=== PATIENT | male | born 1995 | race Asian ===

== ENCOUNTER 2024-10-04 22:34 | Emergency (ER) | payer OTHER, SELFPAY ==
[2024-10-04 22:36] VITALS: BP 131/89
[2024-10-04 22:52] LABS: Hematocrit 44.5 % (39.0-52.0); Hemoglobin 16.3 g/dL (13.0-18.0); Mean Corp Hgb Conc. 36.6 g/dL (33.0-37.0); Mean Corpuscular Volume 92.9 fL (80.0-94.0); Nucleated Red Blood Cells % 0 % (-); Platelet Count 109 10^3/uL (130-400); Red Cell Dist. Width 11.9 % (11.5-14.5)
[2024-10-04 23:04] LABS: ALT (SGPT) 58 U/L (0-50); AST (SGOT) 32 U/L (17-59); Albumin 4.3 g/dl (3.5-5.0); Alkaline Phosphatase 47 U/L (38-126); Blood Urea Nitrogen 15 mg/dl (9-20); Calcium 8.8 mg/dl (8.4-10.2); Carbon Dioxide 24 mmol/L (22-30); Chloride 106 mmol/L (98-107); Glucose 108 mg/dl (70-99); Lipase 65 U/L (23-300); Potassium 3.5 mmol/L (3.5-5.1); Sodium 135 mmol/L (135-145); Total Protein 7.2 g/dl (6.3-8.2); eGFR > 60.00
[2024-10-05 03:25] VITALS: BP 136/83
--- NOTE | 2024-10-05 03:49 | ED.GENMED ---
History of Present Illness
General
Chief Complaint: Abdominal Symptoms
Source: patient
Exam Limitations: none
Time Seen by Provider: 10/05/24 03:42
Nursing documentation reviewed up to this point in time: agreed with
History of Present Illness
History of Present Illness:
This is a 29-year-old gentleman with no significant past medical history. 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 Maintained on doxycycline over the past 11 months for malaria prophylaxis. He complains of 2-day
history of nausea, vomiting, diarrhea, symptoms worsened today. He has not had a fever nor chills. Denies hematemesis nor hematochezia. He denies abdominal pain. No close contacts with similar symptoms. No history of similar episodes in the
past.
He has been attempting to limit his diet to just clear liquids today, drinking Gatorade etc.
Since arrival to the ED patient states he has passed 3 loose stools but has had no vomiting.
Other than doxycycline he takes no other medications.
Past History
Past History
ED Past Medical History: None
ED Past Surgical History: Cholecystectomy
Patient has exhibited threatening behavior?: No
Social History
Tobacco: Non-smoker
Personal: Single
Living: with family
Employment: Employed
Family History
Family History: Other (Noncontributory)
Phy Exam
Physical Exam
Physical Exam:
GENERAL: 29-year-old male appears his stated age, awake and alert, pleasant, appears in no acute distress. Vital signs within normal limits.
EYE: anicteric
NECK: Supple, nontender, no meningismus, no significant adenopathy.
ENT: oral mucosa is moist. No rhinorrhea.
CARDIAC: Regular rate and rhythm. no murmur.
LUNGS: Clear breath sounds bilaterally, no acute respiratory distress, no wheezes/rales/rhonchi
ABDOMEN: Soft, nondistended, without focal tenderness, no r/g, no cvat. normoactive BS.
NEUROLOGICAL: Alert and oriented x3, no focal neuro deficits. Gait is jamison and steady.
SKIN: Warm and dry, normal color, skin intact. No rash.
MUSCULOSKELETAL: No C/C/E. peripheral pulses are full and equal b/l. No palpable tenderness.
PSYCH: Normal and appropriate interaction.
Course
Orders/Labs/Results
Orders:
Orders
10/04/24 22:45
Complete Blood Count/With Diff Urgent
Comprehensive Metabolic Panel Urgent
Lipase Urgent
10/05/24 05:04
Stool Culture Urgent
TOR Source: Feces/Stool
Specimen Description:
Date Specimen was Collected: 10/05/24
Time Specimen was Collected: 05:04
10/05/24 05:05
STOOL [C difficile Antigen & Toxins] Urgent
TOR Source: Feces/Stool
Specimen Description:
Date Specimen was Collected: 10/05/24
Time Specimen was Collected: 05:05
Abnormal Lab Results
10/04/24
22:45
MCH 34.0 H pg
(27.0-31.0)
Plt Count 109 L 10^3/uL
(130-400)
MPV 12.5 H fL
(7.4-10.4)
Absolute Lymphs (auto) 0.5 L 10^3/uL
(1.2-3.4)
Immature Gran % 0.6 H %
(0-0.5)
Neutrophils % 84.2 H %
(42.2-75.2)
Lymphocytes % 7.6 L %
(20.5-51.1)
Glucose 108 H mg/dl
(70-99)
Total Bilirubin 2.3 H mg/dl
(0.2-1.3)
ALT 58 H U/L
(0-50)
10/04/24 22:45
10/04/24 22:45
Vital Signs
Initial and Last Documented VS:
Initial Vital Signs
Temp Pulse Resp BP Pulse Ox
98.1 F 110 18 131/89 97
10/04/24 22:36 10/04/24 22:36 10/04/24 22:36 10/04/24 22:36 10/04/24 22:36
Last Documented Vital Signs
Temp Pulse Resp BP Pulse Ox
98.7 F 88 20 128/82 98
10/05/24 03:25 10/05/24 03:25 10/05/24 03:25 10/05/24 04:00 10/05/24 04:46
MDM/Problems Addressed
Differential Diagnosis Includes:
Concern for acute gastroenteritis, colitis, C. difficile colitis.
Concern for electrolyte abnormality/dehydration.
Overall well in appearance, abdomen is soft without appreciable tenderness and patient denies abdominal pain. He is afebrile and denies recent fever.
Labs are reassuring with normal white blood cell count, normal H&H. Unremarkable chemistries. Mildly elevated T. bili with similar elevation to 2019. Again, reassuring abdominal exam and no complaints of abdominal pain thus, bile duct
stone/biliary colic is unlikely.
Minimally elevated ALT, improved from previous 2019. All other LFTs within normal limits.
With no appreciable abdominal tenderness and no complaints of abdominal pain, at this point no indication for imaging.
Will trial oral fluids and if diarrhea recurs will send for stool cultures, stool for C. difficile antigen. It is however reassuring that white blood cell count is normal and patient has no abdominal discomfort thus C. difficile enteritis is
unlikely.
*Pulse Oximetry
SaO2: 95
Oxygen Mode of Delivery: Room air
Patient hypoxic: no
*Critical Care Note
Total Time (30-74mins, 75-104mins- exclusive of procedures): Not Applicable
Update Note
Update Note:
05:10
Patient has been tolerating clear liquids.
He has passed 1 very small pasty to jellylike consistency brown stool.
Will send stool for stool cultures, stool for C. difficile.
As patient overall appears well, tolerating oral fluids, no fever nor bloody stools, no indication for antibiotics.
Recommend supportive measures. Limiting diet to clear liquids today, slowly advance to soft bland foods tomorrow.
Will prescribe Zofran for as needed nausea. Lomotil for as needed diarrhea.
Prompt follow-up with PCP for recheck.
ED Attending Note
-
Portions of this chart may have been created with voice recognition software.� Occasional wrong word or��sound alike� substitutions may have occurred due to the inherent limitations of voice recognition software.
Discharge Plan
Departure
Patient Disposition: Home (Routine Discharge)
Date of Disposition: 10/05/24
Time of Disposition: 05:10
Patient with high blood pressure during this ER visit?: No
Condition: Good
Discharge Problem:
Acute gastroenteritis
Instructions: Diarrhea in teens and adults, Viral gastroenteritis in adults, Clear Liquid Diet
Prescriptions:
New
diphenoxylate-atropine [Lomotil] 2.5-0.025 mg tablet
1 tab PO QID PRN (Reason: diarrhea) Qty: 10 0RF
ondansetron 4 mg tablet,disintegrating
4 mg PO QID PRN (Reason: nausea and vomiting) Qty: 20 0RF
No Action
cephalexin 500 MG capsule
500 mg PO BID Qty: 14 0RF
Referrals:
Amy Melgoza CRNP [Family Provider] - Call in 1-3 days for appt
Interventions
Interventions:
*Risk Screen - Suicide Last Done: 10/04/24 22:36
*General Assessment Last Done: 10/04/24 22:36
*Neglect/Abuse Screening Last Done: 10/04/24 22:36
*ED- Fall Risk Assessment Last Done: 10/04/24 22:36
*ED COVID-19 Vaccine History Last Done: 10/04/24 22:36
GZ-Fiyipd-Fddlomhmwd Assessment Last Done: 10/05/24 03:50
Discharge Date and Time
Print Language: [id number]
[2024-10-05 03:50] VITALS: BMI 31.1
[2024-10-05 03:52] VITALS: BP 119/85
[2024-10-05 04:00] VITALS: BP 128/82
== END 2024-10-05 05:22 | disposition home or self-care (01) ==
LOC: EMR 22:34
PROVIDERS: Emergency Medicine; EMERGENCY PHYSICIAN Emergency Medicine; FAMILY PHYSICIAN Nurse Practitioner
DX: K52.9 Noninfective gastroenteritis and colitis, unspecified (principal); Z90.49 Acquired absence of other specified parts of digestive tract
CPT/HCPCS: 99283; 80053; 83690; 85025; 87045; 87046; 87324; 87427; 87449